=== PATIENT | female | born 1990 | race American Indian/Alaskan Native ===

== ENCOUNTER 2021-09-16 16:51 | Emergency (ER) | payer MEDICAID ==
[2021-09-16 18:09] VITALS: BP 108/72
--- NOTE | 2021-09-16 22:27 | Emergency Department Report ---
ED General Adult HPI - General Chief complaint: Skin/Abscess/Foreign Body Stated complaint: RT BREAST LUMP PAIN/SWOLLEN SHOULDER Time Seen by Provider: 09/16/21 22:23 Source: patient Mode of arrival: Ambulatory Limitations: No Limitations - History of Present Illness Initial comments: Patient is a 31-year-old female presents emergency room complaints of a lump in her right breast that began 1 year ago. She reports that she has not seen MATHEMATICS TECHNICIAN about this complaint but states that she has an appointment on Monday09/21/2021 to have the area evaluated. She denies any swelling of the breast, skin changes, nipple drainage, nipple bleeding, fever, chills, nausea vomiting. no allergies to meds. Severity scale (0 -10): 7 - Related Data Allergies Allergy/AdvReac Type Severity Reaction Status Date / Time No Known Allergies Allergy Unverified 09/16/21 18:05 ED Review of Systems ROS: Stated complaint: RT BREAST LUMP PAIN/SWOLLEN SHOULDER Other details as noted in HPI Comment: All other systems reviewed and negative ED Physical Exam - General Limitations: No Limitations General appearance: alert, in no apparent distress - Head Head exam: Present: atraumatic, normocephalic - Eye Eye exam: Present: normal appearance - ENT ENT exam: Present: mucous membranes moist - Neurological Exam Neurological exam: Present: alert, oriented X3 - Psychiatric Psychiatric exam: Present: normal affect, normal mood - Skin Skin exam: Present: warm, dry, other (2 cm lump present to the right lateral breast, freely movable, no erythema, no nipple discharge, no nipple retraction, no peau d'orange, no LAD present to the axilla, clavicle or neck, mechanic's assistant: Sathya Thomas) ED Course Vital Signs 09/16/21 18:06 Temperature 97.4 F L Pulse Rate 96 H Respiratory 18 Rate Blood Pressure 108/72 [Right] O2 Sat by Pulse 99 Oximetry ED Medical Decision Making - Medical Decision Making Patient is a 31-year-old female presents emergency room complaints of a lump in her right breast that began 1 year ago. She reports that she has not seen MATHEMATICS TECHNICIAN about this complaint but states that she has an appointment on Monday09/21/2021 to have the area evaluated. She denies any swelling of the breast, skin changes, nipple drainage, nipple bleeding, fever, chills, nausea vomiting. no allergies to meds. Vitals are stable. On exam: 2 cm lump present to the right lateral breast, freely movable, no erythema, no nipple discharge, no nipple retraction, no peau d'orange, no LAD present to the axilla, clavicle or neck, mechanic's assistant: Sathya Thomas. No clinical signs of mastitis or breast abscess. I discussed the importance of MATHEMATICS TECHNICIAN follow-up as patient likely needs outpatient breast ultrasound versus mammogram. Patient already has a scheduled appointment, discussed the importance of keeping appointment. Advised patient Please follow-up with your MATHEMATICS TECHNICIAN and keep your appointment to have this area evaluated. Return to emergency room for any new or worsening symptoms. Critical care attestation.: If time is entered above; I have spent that time in minutes in the direct care of this critically ill patient, excluding procedure time. ED Disposition Clinical Impression: Lump of right breast Qualifiers: Breast mass location: unspecified quadrant Qualified Code(s): N63.10 - Unspecified lump in the right breast, unspecified quadrant Disposition: 01 HOME / SELF CARE / HOMELESS Is pt being admited?: No Does the pt Need Aspirin: No Condition: Stable Additional Instructions: Please follow-up with your MATHEMATICS TECHNICIAN and keep your appointment to have this area evaluated. Return to emergency room for any new or worsening symptoms. Referrals: JAZLYN IVERSON MD [Primary Care Provider] - 3-5 Days your, loan collector [Other] - 3-5 Days Time of Disposition: 22:27 Print Language: PUERT[place] RICAN
== END 2021-09-16 22:28 | disposition home or self-care (01) ==
LOC: ED 16:51
DX: N63.10 Unspecified lump in the right breast, unspecified quadrant (principal)
CPT/HCPCS: 99282